=== PATIENT | male | born 1995 | race African-American/Black ===

== ENCOUNTER 2021-10-29 22:18 | Emergency (ER) | payer SELFPAY ==
[2021-10-29 22:19] VITALS: BP 114/100; PULSE 92; RESP 14; TEMP 36.7; O2SAT 98; BMI 30.8
--- NOTE | 2021-10-29 22:28 | ED.VIS.DENTA ---
HPI History of Present Illness Chief Complaint: Dental Informant: patient Onset/Context/Timing Onset: - (1-2 years) Context: Gradual Onset Timing: Continuous Quality: ache/throbbing Location: both bottom wisdom teeth Current Severity: Severe Maximum Severity: Severe Worsened by: eating drinking Relieved by: - (nothing, tried Aleve) Associated Symptoms Assocated Symptom - Dental: Negative for fever, jaw swelling or face swelling Narrative Narrative: Patient has had diseased wisdom teeth for over a year, pain is gradually worsened, saw dentist last week and states they desire to pull them but he does not have an appointment yet to have that done. Pain has been severe all day today despite taking Aleve. Denies any other new symptoms. Occasionally had some minor bleeding. No foul taste in his mouth or swelling or fevers/chills or other systemic symptoms. PFSH PFSH Medical History no medical history no medical history Home Medications hydrocodone-acetaminophen 5-325mg 5mg-325mg 1 tab PO Q6H PRN PRN Pain 3 days #12 TABLETS 10/29/21 [Rx Last Taken Unknown] Allergy/AdvReac Type Severity Reaction Status Date / Time No Known Allergies Allergy Verified 10/29/21 22:22 Surgical History no surgical history no surgical history Social History Smoking Status: Never smoker ROS ROS ED Constitutional Constitutional ED: Denies chills or fever(s) Eyes Eyes: Denies change in vision or double vision ENT ENT ED: Reports dental pain; Denies sinus pain or throat swelling Cardiovascular Cardiovascular: Denies chest pain or palpitations Respiratory/Chest Respiratory/Chest: Denies cough or dyspnea Integumentary Denies abscess or rash Neurologic Neurologic: Denies headache(s), paresthesias or weakness EXAM Physical Exam Const Vital Signs: 10/29/21 22:19 10/29/21 23:00 10/29/21 23:04 Temperature 98.0 F Temperature Source Temporal Pulse Rate 92 92 92 Respiratory Rate 14 14 14 Blood Pressure 114/100 H 114/100 H 114/100 H Blood Pressure Mean 104 Pulse Ox 98 98 98 Oxygen Delivery Method Room Air Positive well nourished and well developed General Appearance ED: well developed and NAD HEENT HEENT Narrative: Tender mandibular wisdom teeth, they both appear to have focal decay without bleeding or discharge. Gingiva normal. No abscess. No trismus. Otherwise teeth unremarkable. Face and Sinus: sinuses nontender Throat: posterior oropharynx normal Eyes PERRL and EOMs intact bilaterally Neck no lymphadenopathy and supple Resp normal respiratory effort Neuro oriented x3 and CN's II-XII intact bilaterally Sensorium / Orientation: alert Gait (Neuro): normal gait Psych mental status grossly normal and thought process normal Skin no rashes or lesions noted and no wounds MDM MDM MDM Narrative Medical decision making narrative: Further anesthetized with Cetacaine spray followed by placing temporary filling Cavit in both teeth numbers 17 and 32. Given some [place], prescription. OARRS report negative. I do not think he needs a prescription for antibiotics since this is been ongoing for a long time and he has no signs of an infection, we discussed signs and symptoms of that and reasons to return for antibiotics. Otherwise following up with dentistry. Discharge Plan Triage Chief Complaint: Dental ED Provider: Griffin Camacho Dx/Rx/DC Orders Clinical Impression: Dental decay, Odontalgia Instructions: ED Dental Pain, ED Dental Cavity Prescriptions: New hydrocodone-acetaminophen [hydrocodone-acetaminophen] 5-325 mg tablet 1 tab PO Q6H PRN PRN (Reason: Pain) 3 Days Qty: 12 0RF Primary Care Provider: Care Physician,No Primary Referrals: Care Physician,No Primary [Primary Care Provider] - Dentist,Your [STAFF PHYSICIAN] - As soon as possible Disposition Disposition: Home, Self Care
[2021-10-29] MEDS: HYDROcodone Bitartrate/Apap 5/325 Tablet PO (22:40)
[2021-10-29] MEDS: Tetracaine/Benzocaine/Butamben 1 APPLIC TOPICAL (22:41)
[2021-10-29 23:00] VITALS: BP 114/100; PULSE 92; RESP 14; O2SAT 98
[2021-10-29 23:04] VITALS: BP 114/100; PULSE 92; RESP 14; O2SAT 98
== END 2021-10-29 23:31 | disposition home or self-care (01) ==
PROVIDERS: Emergency Provider Emergency Medicine; Visit Provider Emergency Medicine
DX: K02.9 Dental caries, unspecified (principal); K08.89 Other specified disorders of teeth and supporting structures
CPT/HCPCS: 99283

== ENCOUNTER 2022-07-25 21:40 | Emergency (ER) | payer MEDICAID, SELFPAY ==
[2022-07-25 21:41] VITALS: BP 168/84; PULSE 73; RESP 16; TEMP 36.3; O2SAT 100; BMI 26.7
--- NOTE | 2022-07-25 22:20 | RAD_ITS ---
INDICATION: trauma PT SLAMMED RT FOOT IN CAR DOOR EXAMINATION/TECHNIQUE: X-RAY - RIGHT XR Foot Min 3 Views 3 VIEWS COMPARISON: Right foot x-rays 04/16/2014. FINDINGS: BONES: No fracture demonstrated. JOINTS: No dislocation. SOFT TISSUES: Mild soft tissue swelling dorsally in the mid foot. RAD/Foot min 3 Views IMPRESSION: Soft tissue swelling. No evidence of fracture. Electronically Signed: Basilia Barragan MD at 22:51 EDT ,
--- NOTE | 2022-07-25 22:37 | EDS_ITS ---
HPI History of Present Illness Chief Complaint: Lower Extremity Injury Narrative Narrative: Patient accidentally caught his right foot in the door of a car. He has pain in the foot and nowhere else. It hurts if he bears weight or presses on it and rest makes it better. He is not on any blood thinners or any medications. No history of brittle bones. PFSH PFSH Medical History no medical history Home Medications hydrocodone-acetaminophen 5-325mg 5mg-325mg 1 tab PO Q6H PRN PRN Pain 3 days #12 TABLETS 10/29/21 [Rx Last Taken Unknown] Allergy/AdvReac Type Severity Reaction Status Date / Time No Known Allergies Allergy Verified 07/25/22 21:42 Family History no significant family his Surgical History no surgical history Social History Smoking Status: Never smoker ROS ROS ED Gastrointestinal Gastrointestinal: Denies nausea or vomiting Musculoskeletal Musculoskeletal: Reports arthralgias; Denies neck pain Integumentary Denies abscess, Abrasions or rash Neurologic Neurologic: Denies paresthesias or weakness Hematologic/Lymphatic Hematologic/Lymphatic: Denies easy bleeding or easy bruising EXAM Physical Exam Narrative Exam Narrative: Patient is awake alert laying in bed looks quite comfortable. HEENT shows no trauma Cardiorespiratory shows clear lungs and saturations are normal at 100% on room air showing no hypoxia. Abdomen is benign. Extremities show some mild swelling in the midfoot on the right. But it really does not go fully laterally. He really does not have fifth metatarsal tenderness. The ankle itself is not tender and does not open up with stress. No more proximal tenderness. No toe tenderness Const Vital Signs: 07/25/22 21:41 Temperature 97.4 F L Temperature Source Temporal Pulse Rate 73 Respiratory Rate 16 Blood Pressure 168/84 H Blood Pressure Mean 112 Pulse Ox 100 Oxygen Delivery Method Room Air MDM MDM MDM Narrative Medical decision making narrative: My independent interpretation of the patient's three-view x-ray of his right foot shows no sign of fracture. No gas in the tissue. No Lisfranc's injury. Final reading by radiology is soft tissue swelling but no evidence of fracture. Patient can use nonsteroidals or Tylenol. Ice rest and elevation. We will write for a postop shoe to see if this will provide some benefit. We discussed reasons to return. We also discussed that if he still having pain in 1 to 2 weeks he may need repeat x-rays. Radiography Diagnostic Testing: Clinical Impression(s) from Imaging Studies Foot X-Ray 07/25/22 22:20 IMPRESSION: Soft tissue swelling. No evidence of fracture. Electronically Signed: Basilia Barragan MD at 22:51 EDT Reading Location ID and State: [address] [place] [address] Tel , Service support , Discharge Plan Triage Chief Complaint: Lower Extremity Injury ED Provider: Ravi Coburn Dx/Rx/DC Orders Clinical Impression: Contusion of foot, right Instructions: ED Foot Contusion Prescriptions: No Action hydrocodone-acetaminophen [hydrocodone-acetaminophen] 5-325 mg tablet 1 tab PO Q6H PRN PRN (Reason: Pain) 3 Days Qty: 12 0RF Primary Care Provider: Care Physician,No Primary Referrals: Zena Srinivasan MD [Med Staff - Performance Test Architect] - 10-14 Days if not better Care Physician,No Primary [Primary Care Provider] - Disposition Disposition: Home, Self Care
--- NOTE | 2022-07-25 23:47 | ED.RN ---
DECLINED POST OP SHOE
== END 2022-07-25 23:48 | disposition home or self-care (01) ==
PROVIDERS: Emergency Provider Emergency Medicine; Visit Provider Emergency Medicine
DX: S90.31XA Contusion of right foot, initial encounter (principal); W23.2XXA Caught, crushed, jammed or pinched between a moving and stationary object, initial encounter; Y92.810 Car as the place of occurrence of the external cause
CPT/HCPCS: 73630; 99282; A4216